=== PATIENT | female | born 1975 | race Caucasian/White ===

== ENCOUNTER 2018-05-09 16:23 | Emergency (ER) | payer OTHER ==
[~2018-05-09] VITALS: Ht 172.7 cm; Wt 70.9 kg
[~2018-05-09 16:23] MED LIST: MULT-506 PO
[2018-05-09 16:29] VITALS: BP 123/74; PULSE 82; TEMP 36.6; O2SAT 100; Ht 172.7 cm; Wt 70.9 kg
[2018-05-09] MEDS ORDERED: OXYCODONE HCL IR 5 MG TAB (IMMEDIATE RELEASE) PO STA (16:56)
[2018-05-09] MEDS ORDERED: DEXAMETHASONE **PF** INJ 10 MG/ML VIAL IM STA (16:56)
--- NOTE | 2018-05-09 17:40 | DIAGNOSTIC IMAGING REPORT ---
L-SPINE MIN 4 VIEWS ROUTINE HISTORY: Pain low back pain COMPARISON: None. FINDINGS: There is no fracture. No subluxation. Disc spaces are preserved. IMPRESSION: No fracture or subluxation within the lumbar spine. Mild degenerative disc change L3-L4 The above report was generated using voice recognition software. It may contain grammatical, syntax or spelling errors. Electronically signed by: Larry Acosta M.D. 05/09/2018 5:39 PM Dictated Date/Time: 05/09/2018 5:28 PM
--- NOTE | 2018-05-09 17:49 | EMERGENCY ROOM VISIT NOTE ---
ED Visit Note First contact with patient: 16:41 CHIEF COMPLAINT: Low back pain HISTORY OF PRESENT ILLNESS: This 42-year-old female patient presents to the emergency department, ambulatory, complaining of pain in the low back which began 2 days ago. The patient states she slipped on the stairs, falling at the top of the stairs, landing on her mid back and left buttock, then slid down the rest of the stairs. Since that time, she has been experiencing increasing pain of her right low back radiating down her right leg. The patient is currently being treated for sciatica on the left by her PCP and has been going through physical therapy. The pain has been constant and worse with movement. The patient notes the pain as sharp with tingling and a 8/10. The patient has taken diclofenac and Tylenol without relief of the pain. The patient denies any loss of control of their bowel or bladder functions. There has been no leg numbness or weakness, and no change in sensation. No nausea or vomiting or abdominal pain. No chest pain or shortness of breath. The patient has not had prior back injuries. No dysuria or increased urinary frequency. REVIEW OF SYSTEMS: A 10 system review of systems was performed with positives and pertinent negatives listed in the history of present illness. All other systems were reviewed and are negative. ALLERGIES: None MEDICATIONS: Diclofenac, Tylenol PMH: Sciatic SOCIAL HISTORY: The patient lives locally with family. She denies drug, alcohol, tobacco use per PHYSICAL EXAM: VITALS: Vitals are noted on the nurse's note and reviewed by myself. Vital signs stable. GENERAL: This is a 42-year-old white female, in no acute distress, nondiaphoretic, well-developed well-nourished. SKIN: The skin was without rashes, erythema, edema, or bruising. Capillary refill less than 2 seconds. NECK: Supple without nuchal rigidity. No cervical spine tenderness. No paraspinous muscle tenderness. HEART: Regular rate and rhythm without murmurs gallops or rubs. LUNGS: Clear to auscultation bilaterally without wheezes, rales or rhonchi. ABDOMEN: Positive bowel sounds x 4. Normal tympanic percussion. Soft, nontender, without masses or organomegaly. Hart sign negative. MUSCULOSKELETAL: No muscle atrophy, erythema, or edema noted of the back. There is no tenderness over the lumbar spinous processes. There is significant tenderness over the paraspinous muscles on the right. There is significant tenderness over the right buttock. There is no tenderness over the thoracic spine or paraspinous muscles. There are muscle spasms present. The patient is slow to move around with maximum tenderness with position changes or sitting. Positive bilateral straight leg raise test. NEURO: Patient was alert and oriented to person place and time. Normal sensation to light and sharp touch. Deep tendon reflexes 2+ in the lower extremities. Dorsalis pedis pulse 2+ bilaterally. Strength 5/5 and equal in the bilateral lower extremities. RADIOLOGY: L-SPINE MIN 4 VIEWS ROUTINE HISTORY: Pain low back pain COMPARISON: None. FINDINGS: There is no fracture. No subluxation. Disc spaces are preserved. IMPRESSION: No fracture or subluxation within the lumbar spine. Mild degenerative disc change L3-L4 The above report was generated using voice recognition software. It may contain grammatical, syntax or spelling errors. Electronically signed by: Larry Acosta M.D. 05/09/2018 5:39 PM Dictated Date/Time: 05/09/2018 5:28 PM EMERGENCY DEPARTMENT COURSE: The patient was seen and evaluated as above. She was medicated with tizanidine, OxyIR, and dexamethasone. X-ray performed reviewed by myself and radiologist as above. Discussed findings with patient at bedside. The patient was reassessed and had significant improvement in her symptoms. Recommended close outpatient follow-up with her PCP and ongoing physical therapy. Patient was agreeable. Discharge instructions reviewed. The patient was discharged home in good condition. I attest that I have personally reviewed the patient's current medication list. Patient was found to have normal blood pressure on screening and does not require follow-up. Etiologies such as lumbago, sciatica, cauda equina, epidural abscess, osteomyelitis, fracture, aortic disease, metastatic disease, infection, renal colic, gastrointestinal, as well as others were entertained. DIAGNOSIS: Lumbar strain, sciatica The chart was completed utilizing [employer] voice recognition software. Grammatical errors, random word insertions, pronoun errors, and incomplete sentences are an occasional consequence of this system due to software limitations, ambient noise, and hardware issues. Any formal questions or concerns about the content, text, or information contained within the body of this dictation should be directly addressed to the provider for clarification. Current/Historical Medications Scheduled Multivitamin (Multivitamin), 1 TAB PO DAILY Prednisone (Prednisone), 0 PO DAILY Scheduled PRN Oxycodone Ir (Roxicodone Ir), 1 TAB PO Q4H PRN for Pain Allergies Coded Allergies: No Known Allergies (Verified , 04/28/16) Vital Signs Date Time Temp Pulse Resp B/P (MAP) Pulse Ox O2 Delivery O2 Flow Rate FiO2 05/09/18 16:29 36.6 82 20 123/74 100 Room Air Medications Administered Medications (Trade) Dose Ordered Sig/Eileen Route Start Time Stop Time Status Last Admin Dose Admin Tizanidine HCl (Zanaflex Tab) 2 mg NOW STAT PO 05/09/18 16:56 05/09/18 16:58 DC 05/09/18 17:21 2 MG Oxycodone HCl (Roxicodone Immediate Rel Tab) 5 mg NOW STAT PO 05/09/18 16:56 05/09/18 16:58 DC 05/09/18 17:07 5 MG Dexamethasone Sodium Phosphate (Dexamethasone Inj Pf) 10 mg NOW STAT IM 05/09/18 16:56 05/09/18 16:58 DC 05/09/18 17:07 10 MG Departure Information Impression Primary Impression: Strain of lumbar region Additional Impression: Sciatica Dispostion Home / Self-Care Condition GOOD Prescriptions Oxycodone Ir (Roxicodone Ir) 5 Mg Tab 1 TAB PO Q4H Y for Pain, #10 TAB For Initial Treatment Prov: Dana Hall PA-C 05/09/18 Prednisone (Prednisone) 20 Mg Tab 0 PO DAILY, #18 TAB 3 DAILY FOR 3 DAYS, THEN 2 DAILY FOR 3 DAYS, THEN 1 DAILY FOR 3 DAYS. Prov: Dana Hall PA-C 05/09/18 Referrals Abebe Jaramillo D.O. (PCP) Patient Instructions ED Sciatica, [facility] Additional Instructions You have been treated in the Emergency Department for Back Pain. You have received pain medicine in the emergency department which impairs your ability to operate a vehicle. It is illegal for you to drive after receiving these medicines. You have been prescribed OxyIR to be used for pain control. This is a narcotic medication. You cannot drive or consume alcohol while on this medicine. This medicine should only be used for pain that cannot be controlled with over-the- counter pain medicines. Use the tizanidine you were previously prescribed for muscle spasms. You have been prescribed Prednisone. This is a steroid which will help decrease your inflammation, redness, and itch. Take this medicine as prescribed. Take the ENTIRE 9 day course. It is best to take steroids early in the morning as PM dosing can affect your sleeping patterns. For pain control, you can use the following [id number] medicines (if >12 yo): Ibuprofen(Motrin, Advil) may be used for fever or pain. Use 600mg every six hours as needed. Take with food. Avoid using more than 2400mg in a 24 hour period. Do not use 2400mg per day for more than three consecutive days without physician direction. Prolonged inappropriate use can lead to stomach upset or ulcers. (AND/OR) Acetaminophen(Tylenol) may be used for fever or pain. Use 1000mg every six hours as needed. Avoid using more than 3000mg in a 24 hour period. If this is an acute injury, ice can be applied to the area of pain for the first 3 days to help decrease pain and inflammation. After the first 3 days, a heating pad can be used over the area for continued soothing relief. You should schedule a follow-up appointment in 1-2 days with your Primary Care Provider for further evaluation and treatment of your back pain. Return to the Emergency Department if your current symptoms worsen despite treatment course outlined above, or if you develop any of the following symptoms : intractable pain despite aforementioned treatment course, loss of control of your bowel or bladder, numbness or tingling in your groin, or development of a fever. Problem Qualifiers Primary Impression: Strain of lumbar region Encounter type: initial encounter Qualified Codes: S39.012A - Strain of muscle, fascia and tendon of lower back, initial encounter Additional Impression: Sciatica Laterality: right Qualified Codes: M54.31 - Sciatica, right side
[2018-05-09] MEDS ORDERED: PRED20TA PO (18:02)
[2018-05-09] MEDS ORDERED: OXYC-90 PO (18:02)
== END 2018-05-09 18:19 | disposition home or self-care (01) ==
LOC: C.EDB 16:24 → C.EDD 18:19
DX: S39.012A Strain of muscle, fascia and tendon of lower back, initial encounter (principal); W10.9XXA Fall (on) (from) unspecified stairs and steps, initial encounter; M54.31 Sciatica, right side

== ENCOUNTER 2018-05-15 12:26 | Emergency (ER) | payer OTHER ==
[~2018-05-15] VITALS: Ht 172.7 cm; Wt 75.8 kg
[~2018-05-15 12:26] MED LIST changes: +OXYC-90 PO; +PRED20TA PO
[2018-05-15 12:28] VITALS: TEMP 36.6; Ht 172.7 cm; Wt 75.8 kg
[2018-05-15] MEDS ORDERED: TIZA4CAP PO (13:00)
--- NOTE | 2018-05-15 14:04 | DIAGNOSTIC IMAGING REPORT ---
CT THORACIC SPINE WITHOUT CT DOSE: CLINICAL HISTORY: Trauma. Back pain. Bilateral reticular extremity pain. TECHNIQUE: Helical images were acquired in the transverse plane. Sagittal and coronal reformatted images were acquired. A dose lowering technique was utilized adhering to the principles of ALARA. COMPARISON STUDY: None. FINDINGS: No fractures or subluxations are visualized. There is no CT evidence of a paraspinal hematoma. There is pulmonary emphysema. There is mild hilar and mediastinal lymphadenopathy. There are bilateral upper lung zone reticulonodular opacities most pronounced on the right. There is suspected superior right hilar retraction. IMPRESSION: 1. No acute fractures or dislocations identified. 2. Hilar and mediastinal lymphadenopathy 3. Bilateral upper lung zone reticulonodular opacities, most pronounced on the right. Superior right hilar retraction. Emphysema. Electronically signed by: William Barnett M.D. 05/15/2018 2:02 PM Dictated Date/Time: 05/15/2018 1:51 PM
[2018-05-15] MEDS ORDERED: MoRPHine SULFATE 10 MG/ML CARP/VIAL IM ONE (14:30)
--- NOTE | 2018-05-15 14:54 | DIAGNOSTIC IMAGING REPORT ---
CT SCAN OF THE LUMBAR SPINE WITHOUT IV CONTRAST CLINICAL HISTORY: Fall. Bilateral lower extremity pain. COMPARISON STUDY: Radiographs of the lumbar spine dated 05/09/2018. TECHNIQUE: CT scan of the lumbar spine is performed from the lower thoracic spine to the sacrum. Images are reviewed in the axial, sagittal, and coronal planes. IV contrast was not administered for this examination. A dose lowering technique was utilized adhering to the principles of ALARA. CT DOSE: 1106.57 mGy.cm. FINDINGS: The skeletal structures are well mineralized. There is no evidence of fracture or malalignment involving the lumbar spine. Vertebral body height and alignment are maintained. The transverse and spinous processes are intact. There is no spondylolysis. No lytic or blastic lesion is seen. Tiny anterior osteophytes are noted in the mid to lower lumbar region. The disc spaces are preserved. There are tiny posterior disc bulges at L4-L5 and L5-S1. There is no evidence of large disc herniation or high-grade central canal stenosis by CT criteria. The neural foramina are patent as visualized. The paraspinous soft tissues are normal in appearance. There is a 4 mm nonobstructing calculus in the lower pole of the left kidney. No retroperitoneal lymphadenopathy is identified. IMPRESSION: 1. No acute bony abnormality is seen involving the lumbar spine. 2. Nonobstructing left renal calculus. Dictated: 05/15/2018 1:49 PM Transcribed: 05/15/2018 2:54 PM Dc Electronically signed by: Delbert Solis M.D. 05/15/2018 3:08 PM Dictated Date/Time: 05/15/2018 1:49 PM
[2018-05-15] MEDS ORDERED: NRN/300 PO (15:49)
[2018-05-15] MEDS ORDERED: LDDP5 TD (15:49)
[2018-05-15 16:15] VITALS: BP 128/73; PULSE 60; O2SAT 96
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
== END 2018-05-15 16:17 | disposition home or self-care (01) ==
LOC: C.EDB 12:27 → C.EDD 16:17
DX: M54.31 Sciatica, right side (principal); M54.9 Dorsalgia, unspecified; M25.551 Pain in right hip; M25.552 Pain in left hip